=== PATIENT | male | born 1980 | race Caucasian/White ===

== ENCOUNTER 2016-04-14 20:52 | Emergency (ER) ==
[2016-04-14] MEDS ORDERED: DUONEB (A & A) INH ONE (23:18)
[2016-04-14] MEDS ORDERED: TUSSIONEX LIQUID PO ONE (23:19)
--- NOTE | 2016-04-14 23:22 | PROVIDER DOCUMENTATION ---
HPI-Respiratory General - General Source: patient - History of Present Illness-Resp Severity in ED: reports: mild Onset/Duration: reports: other (10 days) Timing: reports: still present Cough Quality/Degree: reports: moderate, dry cough Current Respiratory Medication Therapy: Initiated see nurses note Associated Symptoms: reports: cough Similar Symptoms Previously?: Yes Recently seen or treated by another doctor?: Yes <Jackie Sagastume - Last Filed: 04/14/16 23:18> <Kiel Yen - Last Filed: 04/14/16 23:25> - General Chief Complaint: Cough Stated Complaint: COUGH, SOB Time Seen by Provider: 04/14/16 21:46 Allergies/Adverse Reactions: Patient Allergies Allergy/AdvReac Type Severity Reaction Status Date / Time No Known Allergies Allergy Verified 04/14/16 22:59 - History of Present Illness-Resp Nature of Presenting Problem: 35 year old M presents to the ED with a cc of a cough x10 days. PT states that he was diagnosed with pneumonia and prescribed Levaquin and Medrol Dose Pack. PT states that his cough is getting worse and laying flatter than 90 degrees makes the cough worse. (Jackie Sagastume) Review of Systems - Adult - REVIEW OF SYSTEMS - ADULT Constitutional: denies: chills, fever Eyes: reports: no symptoms reported Ears, Nose, Mouth & Throat: reports: no symptoms reported Cardiovascular: reports: no symptoms reported Respiratory: reports: cough. denies: shortness of breath Gastrointestinal: denies: abdominal pain, nausea, vomiting Genitourinary: reports: no symptoms reported Musculoskeletal: reports: no symptoms reported Integumentary: reports: no symptoms reported Neurological: reports: no symptoms reported Psychiatric: reports: no symptoms reported Endocrine: reports: no symptoms reported Hematologic/Lymphatic: reports: no symptoms reported Allergic/Immunologic: reports: no symptoms reported All Other Systems: Reviewed and Negative <Jackie Sagastume - Last Filed: 04/14/16 23:18> Past History - Adult - PAST MEDICAL HISTORY-ADULT Review of Records: reports: Nursing Assessment Review, Medications Reviewed Major Childhood Illnesses: reports: denies history Respiratory: reports: asthma - PRIOR SURGERIES/PROCEDURES Surgical/Procedure History: reports: appendectomy - IMMUNIZATION STATUS Childhood Immunizations: See Nurse Assessment Flu Vaccine: See Nurse Assessment - SOCIAL HISTORY Smoking: non-smoker Substance Use: none/never Alcohol Use Frequency: never <Jackie Sagastume - Last Filed: 04/14/16 23:18> Physical Exam-General - PHYSICAL EXAM-ADULT Initial Vital Signs Reviewed: Yes - CONSTITUTIONAL General Appearance: appears well, alert, no apparent distress - RESPIRATORY Respiratory: chest non-tender, normal breath sounds, wheezing - CARDIOVASCULAR Cardiovascular: normal peripheral pulses, regular rate, rhythm, no edema - GASTROINTESTINAL (ABDOMEN) Abdominal Exam: non tender, soft - MUSCULOSKELETAL Extremity: normal inspection - SKIN Integumentary: normal color, normal turgor, warm/dry - PSYCHIATRIC Psych/Mental Status: normal mood/affect, normal thought content, normal thought process, oriented x 3 <Jackie Sagastume - Last Filed: 04/14/16 23:18> Progress - XRAY 1 XRAY Study: Chest Impression: Normal XRAY Interpretation: NAD: Dr. Ruiz <Jackie Sagastume - Last Filed: 04/14/16 23:18> <Kiel Yen - Last Filed: 04/14/16 23:25> - PLAN OF CARE/RESULTS Progress/Plan/Lab Results: plan of care: imaging, medications Orders Category Date Time Status CHEST-2 VIEWS [RAD] Stat Exams 04/14/16 21:47 Taken Albuterol 2.5MG/Ipratrop 0.5MG [Duoneb (A & A)] Med 04/14/16 23:18 Discontinued 3 ml INH NOW ONE Hydrocodone/Chlorphen Polis [Tussionex Liquid] Med 04/14/16 23:19 Discontinued 5 ml PO NOW ONE Aerosol Treatments Routine Oth 04/14/16 23:19 Active Aerosol Treatments Stat Oth 04/14/16 23:19 Active Vital Signs - 24 hr 04/14/16 21:01 Temperature 98.3 F Pulse Rate 99 H Respiratory 28 H Rate Blood Pressure 180/111 O2 Sat by Pulse 99 Oximetry Pt given results and will be d/c home w/ rx to follow up with PCP. Pt verbally understood instructions. PT remained clinically stable throughout the course of the ED stay and will return if symptoms worsen. (Jackie Sagastume) Departure <Jackie Sagastume - Last Filed: 04/14/16 23:18> - Departure Time of Disposition Order: 23:22 Certified Medical Emergency: Emergent <Kiel Yen - Last Filed: 04/14/16 23:25> - Departure DIAGNOSIS: Bronchitis, Cough Disposition: HOME 01 Condition: Stable Additional Instructions: Follow up with your primary care doctor as needed. ED Follow Up Instructions: You have been treated by a care provider in the Emergency Department. These instructions are being provided to you so you can have an understanding of how to care for yourself upon discharge. Upon discharge from the Emergency Department, you are responsible for making arrangements for follow-up care by a physician of your choice. Take all prescribed medications as directed. Return to the Emergency Department immediately for any new or worsening symptoms. You may call the Physician Referral phone number at [phone] to obtain a list of Physicians who are taking new patients. Prescriptions: Benzonatate [Tessalon] 100 mg PO TID PRN PRN #20 capsule PRN Reason: Cough Hydrocodone/Chlorphen Polis [Tussionex Liquid] 5 ml PO Q12H PRN PRN #50 udc PRN Reason: Cough Attestation - Scribe Verification/Attestation Scribe:: Jackie Sagastume Acting as Scribe for:: Kiel Yen Scribe documention review:: This chart was documented by a scribe and accurately reflects the service the provider performed and the decisions made by the provider. <Jackie Sagastume - Last Filed: 04/14/16 23:18> - Physician/ Mid-level Attestation Patient care was provided by Mid-level provider (PUMPER GAGER/PA):: Yes Mid-level provider:: Kiel Yen Mid-level documentation review:: The Mid-level provider documentation, treatment plan and medical decision making was reviewed by the physician who agrees with all treatment and medical decision making by the [facility]. <Kiel Yen - Last Filed: 04/14/16 23:25> Physician Attestation - Physician Attestation I, the provider, attest to the following statement:: Kiel Yen Physician documentation Attestation:: This documentation recorded by the scribe accurately reflects the service I personally performed and the decisions made by me. <Jackie Sagastume - Last Filed: 04/14/16 23:18>
[2016-04-14 23:39] VITALS: BP 123/72
--- NOTE | 2016-04-15 08:30 | Diag Imaging Result Document ---
PROCEDURE NAME: CHEST-2 VIEWS - 04/14/2016 CHEST X-RAY, 2 VIEWS: COMPARISON: None. FINDINGS: The lungs are normally expanded and clear. Heart size and mediastinal contours are normal. No pneumothorax or pleural effusion. IMPRESSION: Negative exam.
== END 2016-04-14 23:39 | disposition home or self-care (01) ==
LOC: ED 20:52
DX: J40 Bronchitis, not specified as acute or chronic (principal); R05 Cough; R06.02 Shortness of breath; R06.2 Wheezing
CPT/HCPCS: 71020; 99283